=== PATIENT | male | born 1960 | race Two or more races ===

== ENCOUNTER 2017-07-12 09:32 | Emergency (ER) | payer OTHER ==
[~2017-07-12] VITALS: Ht 172.7 cm; Wt 77.1 kg
[~2017-07-12 09:32] MED LIST: TRAM1TAB98 PO; XANAX1 MG PO
[2017-07-12] MEDS ORDERED: PRILOSEC10 MG (09:51)
== END 2017-07-12 14:33 | disposition home or self-care (01) ==
LOC: ER 09:32
DX: N20.1 Calculus of ureter (principal)

== ENCOUNTER 2018-11-30 13:59 | Emergency (ER) | payer OTHER ==
[~2018-11-30] VITALS: Ht 172.7 cm; Wt 79.4 kg
[~2018-11-30 13:59] MED LIST changes: +PRILOSEC10 MG
[2018-11-30] MEDS ORDERED: TAMS0.4C (14:05)
[2018-11-30] MEDS ORDERED: CRESTOR10 MG (14:05)
[2018-11-30] MEDS ORDERED: NORFLEX100MG (14:07)
== END 2018-11-30 17:36 | disposition home or self-care (01) ==
LOC: ER 13:59
DX: M54.5 Low back pain (principal)

== ENCOUNTER 2024-05-21 05:48 | Emergency (ER) | payer OTHER ==
[~2024-05-21] VITALS: Ht 172.7 cm; Wt 79.4 kg
[~2024-05-21 05:48] MED LIST changes: +CRESTOR10 MG; +NORFLEX100MG; +TAMS0.4C
[2024-05-21] MEDS ORDERED: ACETAMINOPHEN 500 MG GEL..CAP PO ONE (06:15)
[2024-05-21] MEDS ORDERED: DEXAMETHASONE SODIUM PHOSPHATE 4 MG/ML VIAL IM ONE (06:15)
[2024-05-21] MEDS ORDERED: GUAIFENESIN/DEXTROMETHORPHAN 10ML BLIST.PACK PO ONE (06:15)
[2024-05-21 08:18] LABS: HEMATOCRIT 46.6 % (39.0-48.0); MEAN CELL VOLUME 88.7 fL (80.0-100.00); MEAN CORPUSCULAR HEMOGLOBIN 30.5 pg (27.00-32.0); MEAN CORPUSCULAR HGB CONC 34.4 g/dl (32.0-36.0); PLATELET COUNT 232 K/uL (150-450); RED BLOOD COUNT 5.25 M/uL (4.00-6.00); RED CELL DISTRIBUTION WIDTH 12.3 % (11.5-14.5)
== END 2024-05-21 08:57 | disposition home or self-care (01) ==
LOC: ER 05:51
PROVIDERS: General Practice
DX: B34.9 Viral infection, unspecified (principal); R53.81 Other malaise; Z20.822 Contact with and (suspected) exposure to COVID-19; Z88.6 Allergy status to analgesic agent